=== PATIENT | male | born 1970 | race African-American/Black ===

== ENCOUNTER 2022-11-13 13:29 | Emergency (ER) | payer OTHER ==
[~2022-11-13] VITALS: Ht 182.9 cm; Wt 97.7 kg
[2022-11-13] MEDS ORDERED: DOXY100 PO (16:31)
[2022-11-13] MEDS ORDERED: ACET500 PO (16:31)
== END 2022-11-13 16:43 | disposition home or self-care (01) ==
LOC: ER 13:29
DX: J18.9 Pneumonia, unspecified organism (principal); Z59.00 Homelessness unspecified
CPT/HCPCS: 71046; A9270

== ENCOUNTER 2023-11-21 22:15 | Emergency (ER) | payer OTHER ==
[~2023-11-21] VITALS: Ht 182.9 cm; Wt 90.7 kg
[~2023-11-21 22:15] MED LIST: ACET500 PO; DOXY100 PO
[2023-11-21 23:51] VITALS: BP 143/71
== END 2023-11-21 23:52 | disposition home or self-care (01) ==
LOC: ER 22:15
DX: T40.2X1A Poisoning by other opioids, accidental (unintentional), initial encounter (principal)
CPT/HCPCS: 99284